=== PATIENT | male | born 1965 | race Caucasian/White ===

== ENCOUNTER 2016-12-16 06:27 | Day surgery (SDC) | payer BC ==
[~2016-12-16 06:27] MED LIST: Dextrose 5%-0.45% NaCl 1,000 ML IV SCH; Midazolam 1 MG/ML 2 ML SDV ONE; Sodium Chloride 0.9% 10 ML Syringe FLUSH PRN; fentaNYL 100 MCG/2 ML SDV ONE
[2016-12-16] MEDS ORDERED: fentaNYL 100 MCG/2 ML SDV IV ONE ×3 (06:28→07:39)
[2016-12-16] MEDS ORDERED: Midazolam 1 MG/ML 2 ML SDV IV ONE ×7 (06:28→07:45)
--- NOTE | 2016-12-16 10:32 | OR ---
DATE: 12/16/2016 PROCEDURE: Total colonoscopy and multiple cold snare polypectomies. INSTRUMENT USED: CF-H180AL Olympus video colonoscope. Olympus distal detachment device. PREMEDICATIONS: Fentanyl 100 mcg intravenous, Versed 4 mg intravenous. Nasal O2 cannula. The procedure was done under pulse oximetry, BP recording, and director cardiac. INDICATION: Screening colonoscopic examination is done for detection of any polypoid lesions and removal, endoscopic hemostasis therapy if needed. DESCRIPTION OF PROCEDURE: Initial rectal exam was unremarkable. Rigid anoscopy was normal. The colonoscope was passed with ease up to the cecum, photographs were taken of the cecum showing diminutive, benign-appearing polyp, no bleeding was noted from any of the visualized areas at the commencement of the examination. No stricture. No vascular ectasia. No large isolated ulcerations seen. No evidence of diffuse inflammatory bowel disease in the form of friability, contact bleeding, or ulcerations. In the cecum, multiple 3 mm sized benign-appearing polyps 2 in number were noted, cold snare polypectomies were done, the tissues were retrieved and sent for histopathology. Probing the proximal sides of folds and flexures, using adequate distention and clearing up the stool material, withdrawal of the scope was made. Cecum to rectum time over 6 minutes. No bleeding was noted from any of the visualized areas at the completion of examination. IMPRESSION: Diminutive cecal polyps. The patient tolerated the procedure well. [facility] /[id number]
== END 2016-12-16 09:48 | disposition home or self-care (01) ==
LOC: DL.ENDO 06:27
PROVIDERS: ATTEND Internal Medicine Gastroenterology
DX: Z12.11 Encounter for screening for malignant neoplasm of colon (principal); D12.0 Benign neoplasm of cecum; I10 Essential (primary) hypertension; K21.9 Gastro-esophageal reflux disease without esophagitis; J45.909 Unspecified asthma, uncomplicated; E66.9 Obesity, unspecified; Z88.1 Allergy status to other antibiotic agents; Z88.8 Allergy status to other drugs, medicaments and biological substances; Z87.891 Personal history of nicotine dependence; Z68.30 Body mass index [BMI] 30.0-30.9, adult
CPT/HCPCS: 45385; J2250; J3010; J7042

== ENCOUNTER 2019-08-09 06:01 | Day surgery (SDC) | payer BC ==
[~2019-08-09 06:01] MED LIST changes: -Midazolam 1 MG/ML 2 ML SDV ONE; -fentaNYL 100 MCG/2 ML SDV ONE
[2019-08-09] MEDS ORDERED: Midazolam 1 MG/ML 2 ML SDV IV ONE ×7 (06:02→07:31)
[2019-08-09] MEDS ORDERED: fentaNYL 100 MCG/2 ML SDV IV ONE ×7 (06:02→07:17)
[2019-08-09] MEDS ORDERED: Midazolam 1 MG/ML 2 ML SDV ONE (06:19)
[2019-08-09] MEDS ORDERED: fentaNYL 100 MCG/2 ML SDV ONE (06:19)
--- NOTE | 2019-08-09 14:17 | OR ---
DATE: 08/09/2019 PROCEDURES: Total colonoscopy and multiple cold snare polypectomies. INSTRUMENT USED: PCF-H190DL Olympus video colonoscope. PREMEDICATIONS: Fentanyl 200 mcg intravenous, Versed 6 mg intravenous, nasal O2 cannula. The procedure was done under pulse oximetry, BP recording, and surveillance monitor. INDICATION: The patient with previous colonic tubular adenoma and recent Hemoccult-positive stools. Colonoscopic examination is done for detection of any polypoid lesions and removal, endoscopic hemostasis therapy if needed. DESCRIPTION OF PROCEDURE: Initial rectal exam was unremarkable. Rigid anoscopy showed small internal hemorrhoids without bleeding from them. The colonoscope was passed with ease up to the ileocecal area. Photographs were taken of the normal-appearing cecum, identified by landmarks of appendiceal orifice and double-bulged ileocecal folds. No bleeding was noted from any of the visualized areas at the commencement of the examination. The bowel preparation was found to be adequate, [place] scale 2 in all the areas. Total score 6. No stricture. No vascular ectasia. No large isolated ulcerations seen. No evidence of diffuse inflammatory bowel disease in the form of friability, contact bleeding, or ulcerations. In the proximal ascending colon, 3 and 5 mm sized benign- appearing polyps were noted, another diminutive polyp was noted photograph was taken of the largest polyp, multiple cold snare polypectomies were done, the tissues retrieved sent for histopathology. Second look right colonic examination was done. Probing the proximal sides of folds and flexures using adequate distention and clearing up the stool material, withdrawal of the scope was made, cecum to rectum time over 6 minutes. No bleeding was noted from any of the visualized areas at the completion of examination. IMPRESSION: 1. Internal hemorrhoids. 2. Multiple colonic polyps. The patient tolerated the procedure well. [facility] /[id number]
== END 2019-08-09 09:43 | disposition home or self-care (01) ==
LOC: DL.ENDO 06:01
PROVIDERS: ATTEND Internal Medicine Gastroenterology
DX: D12.2 Benign neoplasm of ascending colon (principal); D12.3 Benign neoplasm of transverse colon; K64.8 Other hemorrhoids; K21.9 Gastro-esophageal reflux disease without esophagitis; E66.09 Other obesity due to excess calories; F10.21 Alcohol dependence, in remission; Z87.19 Personal history of other diseases of the digestive system; Z86.010 Personal history of colon polyps; Z98.890 Other specified postprocedural states; Z68.32 Body mass index [BMI] 32.0-32.9, adult
CPT/HCPCS: 45385; J2250; J3010; J7042

== ENCOUNTER 2024-11-13 13:40 | Emergency (ER) | payer BC ==
[2024-11-13] MEDS: Nitroglycerin 0.4 MG Tab.SL SL PRN (14:03)
[2024-11-13] MEDS: Heparin Sodium 5,000 Units/ML Vial IVPUSH ONE (14:09)
[2024-11-13] MEDS: Heparin Sodium/0.45% NaCl 25,000 UNITS/500 ML BAG IV SCH (14:23)
[2024-11-13 14:31] LABS: BASOPHILS PERCENT AUTO 0.3 % (0.0-1.0); EOSINOPHILS PERCENT AUTO 2.5 % (1.0-3.0); LYMPHOCYTES PERCENT AUTO 25.9 % (20.5-50.1); MONOCYTES PERCENT AUTO 9.7 % (2-8); NEUTROPHILS PERCENT AUTO 61.6 % (42.2-75.2); PLATELET COUNT,PLT 268 10^3/uL (150-450); RED BLOOD CELL COUNT 4.86 10^6/uL (4.6-6.2); WHITE BLOOD CELL COUNT,WBC 10.1 10^3/uL (5.0-10.0)
[2024-11-13 14:44] LABS: INR 0.9 (0.9-1.2)
[2024-11-13 14:46] LABS: A/G RATIO 1.0; ALANINE AMINOTRANSFERASE,ALT 51.0 U/L (16-63); ASPARTATE AMNIOTRANSFERASE,AST 43.0 U/L (15-37); BILIRUBIN TOTAL 1.4 mg/dL (0.2-1.0); BLOOD UREA NITROGEN,BUN 12.0 mg/dL (7-18); CARBON DIOXIDE,CO2 26.0 mmol/L (21-32); CHLORIDE,CL 99.0 mmol/L (98-107); CREATININE 0.99 mg/dL (0.70-1.30); EST CRCL DRUG DOSING (CG) 62.81 mL/min; GLUCOSE RANDOM 186.0 mg/dL (70-99); POTASSIUM,K 3.5 mmol/L (3.5-5.1); PROTEIN TOTAL,TP 8.5 g/dL (6.4-8.2); SODIUM,NA 139.0 mmol/L (136-145)
[2024-11-13 14:48] LABS: ESTIMATED GFR 88.0 mL/min (>=60)
== END 2024-11-13 14:43 ==
LOC: DL.ED 13:40
DX: I21.19 ST elevation (STEMI) myocardial infarction involving other coronary artery of inferior wall (principal); I10 Essential (primary) hypertension; E78.00 Pure hypercholesterolemia, unspecified; I25.10 Atherosclerotic heart disease of native coronary artery without angina pectoris; E66.9 Obesity, unspecified; J45.909 Unspecified asthma, uncomplicated; Z79.899 Other long term (current) drug therapy; Z88.2 Allergy status to sulfonamides; Z88.8 Allergy status to other drugs, medicaments and biological substances; Z68.34 Body mass index [BMI] 34.0-34.9, adult
CPT/HCPCS: 36415; 71045; 80053; 83735; 84484; 85025; 85610; 85730; 93005; 93010; 96365; 99285; 99291; A9270; J1644; J2305; J7040